=== PATIENT | male | born 1945 | race Caucasian/White ===

== ENCOUNTER 2018-12-05 01:36 | Inpatient (IN) | payer MEDICARE, BC ==
[~2018-12-05] VITALS: Ht 175.3 cm; Wt 65.3 kg
--- NOTE | 2018-12-05 01:40 | NUR ---
PT OCHOA FROM [facility] COMPLAINING OF SUICIDAL IDEATION WITH PLAN TO SHOOT HIMSELF. PT DENIES HI OR HALLUCINATIONS. PT AAOX4. RESPIRATIONS EVEN AND UNLABORED. SKIN INTACT. ABLE TO AMBULATE WITH STEADY GAIT. NO ACUTE DISTRESS NOTED AT THIS TIME.
[2018-12-05 02:05] LABS: APPEARANCE,URINE CLOUDY (CLEAR); BILIRUBIN,URINE NEGATIVE (NEGATIVE); BLOOD, URINE TRACE-INTA Ery/uL (NEGATIVE); COLOR,URINE YELLOW (YELLOW); KETONES,URINE NEGATIVE (NEGATIVE); LEUKOCYTE ESTERASE ,URINE 2+ (NEGATIVE); NITRITE, URINE NEGATIVE (NEGATIVE); PROTEIN,URINE NEGATIVE (NEGATIVE); UGLUCOSE NEGATIVE (NEGATIVE); UROBILINOGEN,URINE 0.2 EU/dL (0.2)
[2018-12-05 02:07] LABS: BASOPHILS # (AUTO) 0.1 /CMM (0.0-0.2); EOSINOPHILS % (AUTO) 0.7 % (0.0-6.0); HEMATOCRIT 42 % (39-51); HEMOGLOBIN 13.6 g/dL (13.5-17.5); LYMPHOCYTES # (AUTO) 1.2 /CMM (0.8-4.8); LYMPHOCYTES % (AUTO) 14.4 % (20.0-44.0); MEAN CORPUSCULAR HGB CONC 32 g/dl (31.0-36.0); MEAN CORPUSCULAR VOLUME 100 fL (80-96); MONOCYTES # (AUTO) 0.9 /CMM (0.1-1.30); MONOCYTES % (AUTO) 10.5 % (2.0-12.0); NEUTROPHILS # (AUTO) 6.3 /CMM (1.8-8.9); NEUTROPHILS % (AUTO) 73.4 % (43.0-81.0); PLATELET COUNT (AUTO) 276 /CMM (150-450); RED BLOOD CELL COUNT(AUTO) 4.23 MIL/uL (4.5-6.0); WHITE BLOOD COUNT (AUTO) 8.6 K/uL (4.3-11.0)
[2018-12-05 02:19] LABS: CALCIUM, SERUM 9.1 mg/dL (8.5-10.1); CARBON DIOXIDE 29 mmol/L (21-32); CHLORIDE 107 mmol/L (98-107); CREATININE 1.1 mg/dL (0.6-1.3); GLUCOSE 114 mg/dL (74-106); POTASSIUM 4.1 mmol/L (3.5-5.1); SODIUM SERUM 146 mmol/L (136-145); UREA NITROGEN, BLOOD 12 mg/dL (7-18)
[2018-12-05 02:22] LABS: ALANINE AMINOTRANSFERASE 16 U/L (12-78); ALBUMIN 3.3 g/dL (3.4-5.0); ALCOHOL, BLOOD < 3 mg/dL (0-0); ALKALINE PHOSPHATASE 81 U/L (46-116); ASPARTATE AMINOTRANSFERASE 11 U/L (15-37); BILIRUBIN,DIRECT 0.2 mg/dL (0.0-0.2); BILIRUBIN,TOTAL 0.5 mg/dL (0.2-1.0); TOTAL PROTEIN, SERUM 6.7 g/dL (6.4-8.2)
[2018-12-05 02:26] LABS: ACETAMINOPHEN 0 ug/ml (10-30)
[2018-12-05 02:47] LABS: BACTERIA,URINE Moderate /HPF (None Seen); SQUAMOUS EPITHELIAL CELL,UR Rare /HPF (None Seen); WBC,URINE TOO NUMEROUS TO COUN /HPF (0-3)
--- NOTE | 2018-12-05 03:07 | NUR ---
REPORT GIVEN TO MONAE DIALLO
[2018-12-05] MEDS ORDERED: MAGNESIUM HYDROXIDE 30 ML UDC PO PRN (03:30)
[2018-12-05] MEDS ORDERED: ACETAMINOPHEN 325 MG TABLET PO PRN (03:30)
[2018-12-05] MEDS ORDERED: ZOLPIDEM TARTRATE 5 MG TABLET PO PRN (03:30)
[2018-12-05] MEDS ORDERED: MAG HYDROX/AL HYDROX/SIMETH 30 ML UDC PO PRN (03:30)
[2018-12-05 04:27] VITALS: BP 127/70
--- NOTE | 2018-12-05 04:51 | NUR ---
ADMISSION NOTES: ADMITTED THIS 73 Y/O MALE PATIENT ADMIT FROM [facility] ER/INTIALLY FROM [facility] , PT IS ON 5150 HOLD FOR DANGER TO SELF , PER HOLD PT. I,M TIRED OF MAKING MY CRY, I HAVE GUN AT HOME, I WILL SHOOT MYSELF IN THE MOUTH WITH IT, OR DRIVE INTO A BRICK WALL OR ANYTHING TO END MY LIFE ITS OVER , UPON FACE TO FACE ASSESSMENT PATIENT IS A&O X ,2 DEPRESSED ANXIOUS UNCOOPERTIVE, EASILY GETS AGITATED, PT. IS POOR HISTORIAN, POOR INSIGHT ,POOR JUDGEMENT , POOR HYGINE , PT. REFUSED TO TAKE SHOWER AT THIS TIME , AND PT. REFUSED TO SIGN ADMISSION PAPERS ,V/S MD JULIANNE AWARE AND NOTIFIED OF THE ADMISSION, SKIN ASSESSMENT DONE, PICTURES TAKEN AND PLACED IN THE CHART, BELONGINGS CONTRABAND WERE DONE , NURSING ASSESSMENT DONE ,PT. RIGHTS DISCUSS BY WIDE AREA NETWORK SYSTEMS ADMINISTRATOR , PROVIDE THE PT. WITH HANDBOOK, AND MEDICATIONS GUIDE, ENVIRONMENTAL SAFETY CHECK DONE, ENCOURAGED PT. VERBALIZED ANY FEELING CONCERN TO STAFF, ORIENT TO UNIT POLICY, NO ACUTE DISTRESS NOTED,VITAL SIGNS WNL ,DENIES ANY PAIN AT THIS TIME ,WILL CONTINUE TO MONITOR FOR Q15 SAFETY AND BEHAVIOR.
[2018-12-05] MEDS ORDERED: SULF1TAB48 PO (05:20)
[2018-12-05] MEDS ORDERED: BUDE10.2 IH (05:20)
[2018-12-05] MEDS ORDERED: FINA5TAB11 PO (05:20)
[2018-12-05] MEDS ORDERED: TIOT18CA3 IH (05:20)
--- NOTE | 2018-12-05 06:49 | NUR ---
GPS RN NOTES: ATTEMPTED TO CALL FAMILY MEMEBER, HOWEVER NO ANSWER NOTED AT THIS TIME , LEFT VOICE MAIL MESSAGE AT THIS # [phone] .
[2018-12-05 08:00] VITALS: BP 139/89
[2018-12-05] MEDS ORDERED: DIVA250T47 PO (09:01)
[2018-12-05] MEDS: DIVALPROEX SODIUM 250 MG TABLET.DR PO SCH ×2 (11:20→20:30)
--- NOTE | 2018-12-05 15:07 | NUR ---
Group Note: SW encouraged the pt to participate in the group therapy but he stated that he would rather finish speaking to his on the phone.
[2018-12-05] MEDS: SULFAMETH/TRIMETH 800/160 MG 1 UDTAB TABLET PO SCH ×2 (15:29→20:30)
[2018-12-05 16:00] VITALS: BP 129/76
[2018-12-05] MEDS ORDERED: Medication Not On Formulary EA (Budesonide/Formoterol Fumarate (Symbicort 160-4.5 Mcg In IH SCH (17:00)
[2018-12-05] MEDS ORDERED: TIOTROPIUM BROMIDE 6 CAP/BOX CAP.W.DEV IH SCH (17:00)
[2018-12-05] MEDS: IPRATROPIUM NEB FS 0.5 MG/2.5 ML AMPUL.NEB NEB SCH ×2 (19:30→20:18)
--- NOTE | 2018-12-05 19:30 | NUR ---
RN NOTES: RECEIVED ASLEEP ON BED, PREFER TO BE INSIDE THE ROOM MOST OF THE TIME, A/OX2,GOOD COMPLIANCE WITH MEDICATION, NO SIGN OF AGITATION, WILL CONTINUE TO MONITOR BEHAVIOR,SAFETY PRECAUTION OBSERVED.ON CLOSE WATCH.
[2018-12-05 20:00] VITALS: BP 123/58
[2018-12-05] MEDS ORDERED: QUETIAPINE FUMARATE 25 MG TABLET PO SCH (22:00)
[2018-12-06] MEDS: IPRATROPIUM NEB FS 0.5 MG/2.5 ML AMPUL.NEB NEB SCH ×4 (01:30→19:30)
--- NOTE | 2018-12-06 03:10 | NUR ---
RN NOTES: SLEEP WELL IN THE NIGHT, CALLS AND NEEDS ATTENDED, FALL,SAFETY AND ASPIRATION PRECAUTION OBSERVED.BED LOW AND LOCKED.
[2018-12-06 07:09] LABS: BASOPHILS % (AUTO) 0.7 % (0.0-2.0); EOSINOPHILS % (AUTO) 1.5 % (0.0-6.0); HEMATOCRIT 35 % (39-51); HEMOGLOBIN 11.5 g/dL (13.5-17.5); LYMPHOCYTES # (AUTO) 1.3 /CMM (0.8-4.8); LYMPHOCYTES % (AUTO) 23.5 % (20.0-44.0); MEAN CORPUSCULAR HGB CONC 33 g/dl (31.0-36.0); MEAN CORPUSCULAR VOLUME 98 fL (80-96); MONOCYTES # (AUTO) 0.6 /CMM (0.1-1.30); MONOCYTES % (AUTO) 10.3 % (2.0-12.0); NEUTROPHILS # (AUTO) 3.7 /CMM (1.8-8.9); PLATELET COUNT (AUTO) 191 /CMM (150-450); RED BLOOD CELL COUNT(AUTO) 3.51 MIL/uL (4.5-6.0); WHITE BLOOD COUNT (AUTO) 5.7 K/uL (4.3-11.0)
[2018-12-06 07:11] LABS: CHOLESTEROL 121 mg/dL (<200); HDL CHOLESTEROL 47 mg/dL (40-60); LDL 64 mg/dL (0-99); TRIGLYCERIDES 51 mg/dL (30-150)
[2018-12-06 07:17] LABS: ALANINE AMINOTRANSFERASE 12 U/L (12-78); ALBUMIN 2.5 g/dL (3.4-5.0); ALKALINE PHOSPHATASE 56 U/L (46-116); ASPARTATE AMINOTRANSFERASE 9 U/L (15-37); BILIRUBIN,TOTAL 0.5 mg/dL (0.2-1.0); CALCIUM, SERUM 8.4 mg/dL (8.5-10.1); CARBON DIOXIDE 32 mmol/L (21-32); CHLORIDE 109 mmol/L (98-107); CREATININE 1.1 mg/dL (0.6-1.3); GLUCOSE 77 mg/dL (74-106); POTASSIUM 4.4 mmol/L (3.5-5.1); SODIUM SERUM 146 mmol/L (136-145); UREA NITROGEN, BLOOD 14 mg/dL (7-18)
[2018-12-06 08:00] VITALS: BP 116/90
[2018-12-06] MEDS: FLUTICASONE/VILANTEROL 1 EACH BLST.W.DEV IH SCH (08:31)
[2018-12-06] MEDS: SULFAMETH/TRIMETH 800/160 MG 1 UDTAB TABLET PO SCH ×2 (08:32→20:25)
[2018-12-06] MEDS: DIVALPROEX SODIUM 250 MG TABLET.DR PO SCH ×2 (08:32→20:24)
[2018-12-06] MEDS: FINASTERIDE (5 MG) 5 MG TABLET PO SCH (08:34)
[2018-12-06] MEDS ORDERED: ESCITALOPRAM OXALATE (10 MG) 10 MG TABLET PO SCH (09:00)
[2018-12-06 16:00] VITALS: BP 133/86
[2018-12-06 20:41] VITALS: BP 124/83
[2018-12-07] MEDS: IPRATROPIUM NEB FS 0.5 MG/2.5 ML AMPUL.NEB NEB SCH ×4 (01:30→19:30)
[2018-12-07 08:00] VITALS: BP 119/72
[2018-12-07] MEDS ORDERED: QUETIAPINE FUMARATE 25 MG TABLET PO SCH (08:41)
[2018-12-07] MEDS: FINASTERIDE (5 MG) 5 MG TABLET PO SCH (08:59)
[2018-12-07] MEDS: DIVALPROEX SODIUM 250 MG TABLET.DR PO SCH ×2 (08:59→21:13)
[2018-12-07] MEDS: FLUTICASONE/VILANTEROL 1 EACH BLST.W.DEV IH SCH (08:59)
[2018-12-07] MEDS: SULFAMETH/TRIMETH 800/160 MG 1 UDTAB TABLET PO SCH ×2 (08:59→21:13)
[2018-12-07 16:00] VITALS: BP 146/73
[2018-12-07 20:11] VITALS: BP 147/57
[2018-12-07] MEDS: QUETIAPINE FUMARATE 25 MG TABLET PO SCH (21:13)
[2018-12-08] MEDS: IPRATROPIUM NEB FS 0.5 MG/2.5 ML AMPUL.NEB NEB SCH ×4 (01:30→19:30)
[2018-12-08 07:37] LABS: ALANINE AMINOTRANSFERASE 11 U/L (12-78); ALBUMIN 2.6 g/dL (3.4-5.0); ALKALINE PHOSPHATASE 58 U/L (46-116); ASPARTATE AMINOTRANSFERASE 9 U/L (15-37); BILIRUBIN,TOTAL 0.5 mg/dL (0.2-1.0); CALCIUM, SERUM 8.3 mg/dL (8.5-10.1); CARBON DIOXIDE 28 mmol/L (21-32); CHLORIDE 105 mmol/L (98-107); CREATININE 1.1 mg/dL (0.6-1.3); GLUCOSE 66 mg/dL (74-106); POTASSIUM 3.9 mmol/L (3.5-5.1); SODIUM SERUM 142 mmol/L (136-145); TOTAL PROTEIN, SERUM 5.2 g/dL (6.4-8.2); UREA NITROGEN, BLOOD 24 mg/dL (7-18)
[2018-12-08 07:42] LABS: BASOPHILS # (AUTO) 0.1 /CMM (0.0-0.2); EOSINOPHILS % (AUTO) 1.9 % (0.0-6.0); HEMATOCRIT 39 % (39-51); HEMOGLOBIN 12.6 g/dL (13.5-17.5); LYMPHOCYTES # (AUTO) 0.9 /CMM (0.8-4.8); LYMPHOCYTES % (AUTO) 16.6 % (20.0-44.0); MEAN CORPUSCULAR HGB CONC 33 g/dl (31.0-36.0); MEAN CORPUSCULAR VOLUME 99 fL (80-96); MONOCYTES # (AUTO) 0.5 /CMM (0.1-1.30); MONOCYTES % (AUTO) 10.6 % (2.0-12.0); NEUTROPHILS # (AUTO) 3.6 /CMM (1.8-8.9); NEUTROPHILS % (AUTO) 69.9 % (43.0-81.0); PLATELET COUNT (AUTO) 168 /CMM (150-450); RED BLOOD CELL COUNT(AUTO) 3.88 MIL/uL (4.5-6.0); WHITE BLOOD COUNT (AUTO) 5.1 K/uL (4.3-11.0)
[2018-12-08 07:53] LABS: VALPROIC ACID 62 ug/mL (50-100)
[2018-12-08 08:00] VITALS: BP 113/76
[2018-12-08] MEDS: FINASTERIDE (5 MG) 5 MG TABLET PO SCH (08:36)
[2018-12-08] MEDS: DIVALPROEX SODIUM 250 MG TABLET.DR PO SCH ×2 (08:36→20:52)
[2018-12-08] MEDS: SULFAMETH/TRIMETH 800/160 MG 1 UDTAB TABLET PO SCH ×2 (08:36→20:52)
[2018-12-08] MEDS: FLUTICASONE/VILANTEROL 1 EACH BLST.W.DEV IH SCH (08:44)
--- NOTE | 2018-12-08 11:45 | NUR ---
SW called the pt's , Martha Barker ([phone]), and left a voicemail stating that the SW would like to discuss the pts treatment plan and initial discharge plan.
--- NOTE | 2018-12-08 11:50 | NUR ---
Initial Discharge Plan: Pt currently resides at his home with his , Martha Barker ([phone]), located at [address] [place] [address]. Per pt, he would like to return to his home. SW will work with the pt and the MD regarding appropriate discharge planning. SW will form a safe and proper discharge.
[2018-12-08 16:00] VITALS: BP 147/74
[2018-12-08 20:21] VITALS: BP 121/63
[2018-12-08] MEDS: QUETIAPINE FUMARATE 25 MG TABLET PO SCH (21:18)
[2018-12-09] MEDS: IPRATROPIUM NEB FS 0.5 MG/2.5 ML AMPUL.NEB NEB SCH ×4 (01:30→18:54)
[2018-12-09 08:00] VITALS: BP 101/55
[2018-12-09] MEDS: FINASTERIDE (5 MG) 5 MG TABLET PO SCH (08:17)
[2018-12-09] MEDS: SULFAMETH/TRIMETH 800/160 MG 1 UDTAB TABLET PO SCH ×2 (08:18→20:54)
[2018-12-09] MEDS: DIVALPROEX SODIUM 250 MG TABLET.DR PO SCH ×2 (08:18→20:54)
[2018-12-09] MEDS: FLUTICASONE/VILANTEROL 1 EACH BLST.W.DEV IH SCH (08:19)
[2018-12-09] MEDS: ESCITALOPRAM OXALATE (10 MG) 10 MG TABLET PO SCH (09:59)
--- NOTE | 2018-12-09 13:45 | NUR ---
Group note: Pt attended a group session on 12/09/18 at 1PM discussing discharge needs. S: Pt stated, I want to return to my and return to the life that I had. I miss being able to sit in my house, in my chair, with my TV, and just do as I please. I have a life. I do not know why I wanted to give that up." O: Pt was present during the group session and was engaged. Pt appeared to be in a euthymic mood and presented with an agitated affect. Pt maintained appropriate eye contact and his tone of voice was pressured. A: Pt expressed that being in the hospital has made him realize that he has a good life and that he wants to return to it. Pt expressed that what he had said that he wanted to do to himself was "stupid." He expressed regret over the situation with his and stated that he does miss her and wants to keep living with her. Pt expressed that he may need therapy for once he is discharged from the hospital. P: Pt will continue milieu treatment and medication stabilization.
[2018-12-09 16:22] VITALS: BP 112/79
[2018-12-09 19:51] VITALS: BP 114/61
[2018-12-09] MEDS: QUETIAPINE FUMARATE 25 MG TABLET PO SCH (20:54)
[2018-12-10] MEDS: IPRATROPIUM NEB FS 0.5 MG/2.5 ML AMPUL.NEB NEB SCH ×4 (00:40→19:30)
[2018-12-10 08:00] VITALS: BP 150/80
--- NOTE | 2018-12-10 09:30 | NUR ---
SW received a call from pt's , Martha Barker ([phone]) requesting information regarding pts discharge. SW informed her that psychiatrist Dr. Taylor has not ordered discharge for pt as pt has been isolating and not engaging in milieu treatment. explained that pt is not a trusting person and he does not like being around other people. She also mentioned that pt has been complaining that the psychiatrist does not have a friendly relationship with him. SW explained that psychiatrist comes to evaluate pt daily and also explained that psychiatrist is treating pts psychiatric symptoms and per his daily evaluations feels that pt is not ready for discharge as he is still meeting criteria for psychiatric hypostatization. stated that pt told her that he does not trust Dr. Taylor and needs to get to know him better before cooperating with him. SW explained that cooperating with the psychiatrist and social media marketing specialist is part of pts treatment plan and in order to be discharged pt needs to be cooperative with his treatment. understood and asked SW to explain this pt. SW stated she would have a conversation with pt regarding his treatment plan agreed.
[2018-12-10] MEDS: FLUTICASONE/VILANTEROL 1 EACH BLST.W.DEV IH SCH (09:44)
[2018-12-10] MEDS: DIVALPROEX SODIUM 250 MG TABLET.DR PO SCH ×2 (09:44→21:08)
[2018-12-10] MEDS: SULFAMETH/TRIMETH 800/160 MG 1 UDTAB TABLET PO SCH ×2 (09:44→21:07)
[2018-12-10] MEDS: ESCITALOPRAM OXALATE (10 MG) 10 MG TABLET PO SCH (09:44)
[2018-12-10] MEDS: FINASTERIDE (5 MG) 5 MG TABLET PO SCH (09:45)
--- NOTE | 2018-12-10 15:20 | NUR ---
GROUP NOTE: SW facilitated group on 12/10/18 at 2:00pm, group topic was "drug dependency." S: "I don't fucking have a drug problem, why the fuck does it say on this paper that I do!. I smoke a bowl of weed to mellow me out and take the edge out so fucking what! no one is going to tell me to stop" O: pt was agitated, using foul language, uncooperative. Pt became labile and hostile and would not allow SW to speak. A" Pt did not gain awareness of his substance use, pt stated he will never stop smoking marijuana. P: Pt will continue milieu treatment and medication stabilization.
[2018-12-10 16:00] VITALS: BP 110/73
--- NOTE | 2018-12-10 17:30 | NUR ---
PT. ON PHONE TODAY AND AGITATED SEVERAL TIMES.
[2018-12-10 19:59] VITALS: BP 143/89
[2018-12-10] MEDS: QUETIAPINE FUMARATE 25 MG TABLET PO SCH (21:08)
[2018-12-10] MEDS: LORAZEPAM 0.5 MG TABLET PO PRN (21:08)
[2018-12-11] MEDS: IPRATROPIUM NEB FS 0.5 MG/2.5 ML AMPUL.NEB NEB SCH ×4 (01:10→19:30)
[2018-12-11 08:00] VITALS: BP 104/70
[2018-12-11] MEDS: FINASTERIDE (5 MG) 5 MG TABLET PO SCH (08:43)
[2018-12-11] MEDS: DIVALPROEX SODIUM 250 MG TABLET.DR PO SCH ×2 (08:43→20:40)
[2018-12-11] MEDS: ESCITALOPRAM OXALATE (10 MG) 10 MG TABLET PO SCH (08:43)
[2018-12-11] MEDS: FLUTICASONE/VILANTEROL 1 EACH BLST.W.DEV IH SCH (08:43)
[2018-12-11] MEDS: SULFAMETH/TRIMETH 800/160 MG 1 UDTAB TABLET PO SCH (08:43)
--- NOTE | 2018-12-11 15:20 | NUR ---
GROUP NOTE: Pt did not attend group due to pt contesting his 4230 hold and attending his PC hearing.
[2018-12-11 16:18] VITALS: BP 118/71
[2018-12-11 20:00] VITALS: BP 105/68
[2018-12-11] MEDS: QUETIAPINE FUMARATE 25 MG TABLET PO SCH (22:46)
[2018-12-12] MEDS: IPRATROPIUM NEB FS 0.5 MG/2.5 ML AMPUL.NEB NEB SCH ×4 (01:30→19:30)
[2018-12-12 08:00] VITALS: BP 106/67
--- NOTE | 2018-12-12 08:40 | NUR ---
SHANITA received a call from pt's , Martha Barker ([phone]) requesting information regarding pts discharge. SW informed her that psychiatrist has not ordered discharge as pt continues to meet criteria for hospitalization due to his labile and unpredictable mood. explained that pt has a difficult time with male authority figures and also has a difficult time with people who are educated. SW educated pts and provided her with insight into pts mental illness. SHANITA also addressed pts weapon and informed that due to pt being placed on a 5150 hold he no longer is able to possess a weapon. SHANITA informed her that due to pt threatening to end his life with a gun, SW is mandated to contact their local police department and report that there is a gun in the home for seizure. SHANITA also informed that a Fire Arm Prohibition form was completed online and sent to the Department of Justice which means that pt will no longer be able to own a gun. stated that this information will make pt really angry as he has multiple guns SW informed her that for pts safety is it best she remove the guns and take then to her local authority or a patrol police sergeant will come to the home to remove them. understood and stated she needed to see how she could remove them before pt is discharged back home.
[2018-12-12] MEDS: FINASTERIDE (5 MG) 5 MG TABLET PO SCH (09:31)
[2018-12-12] MEDS: FLUTICASONE/VILANTEROL 1 EACH BLST.W.DEV IH SCH (09:31)
[2018-12-12] MEDS: DIVALPROEX SODIUM 250 MG TABLET.DR PO SCH ×2 (09:31→21:37)
[2018-12-12] MEDS: ESCITALOPRAM OXALATE (10 MG) 10 MG TABLET PO SCH (09:31)
--- NOTE | 2018-12-12 14:37 | NUR ---
Group note: Pt attended a group session on 12/12/18 at 1:30PM discussing their goals for when they are in the hospital and for once they are discharged. S: Pt stated, I have never set any goals for myself because I cannot achieve them. I just want to go to home and go back to my life. O: Pt was present during the group session and was engaged. Pt appeared to be in a depressed mood and presented with an agitated affect. Pt maintained appropriate eye contact and had a very sarcastic and apathetic tone. A: Pt expressed that he feels as if his stay in the hospital was not helpful and that he is just doing what he thinks he needs to do to get discharged back to his home. Pt gained the insight that his medications are important and that he needs to be able to talk to his and use her for support. P: Pt will continue milieu treatment and medication stabilization.
--- NOTE | 2018-12-12 14:52 | NUR ---
GUN REPORT: SHANITA contacted [place] [employer] Address: [address], [place] [address] and spoke with Officer Brittany who collected information from SHANITA and stated she would contact the Patrol Conductor and inform him of gun cease. Brittany stated SHANITA should expect a call back with updated information.
[2018-12-12 16:00] VITALS: BP 119/73
--- NOTE | 2018-12-12 16:56 | NUR ---
staying in room mostly,isolative.no change in status.
--- NOTE | 2018-12-12 18:48 | NUR ---
GIVEN TYLENOL 650 MG PO FOR ESTEFANÍA. LEG PAIN.
[2018-12-12 20:00] VITALS: BP 103/62
[2018-12-12] MEDS: QUETIAPINE FUMARATE 25 MG TABLET PO SCH (21:37)
[2018-12-13] MEDS: IPRATROPIUM NEB FS 0.5 MG/2.5 ML AMPUL.NEB NEB SCH ×4 (02:39→19:30)
[2018-12-13 08:00] VITALS: BP 109/70
[2018-12-13] MEDS: FLUTICASONE/VILANTEROL 1 EACH BLST.W.DEV IH SCH (09:07)
[2018-12-13] MEDS: DIVALPROEX SODIUM 250 MG TABLET.DR PO SCH ×2 (09:07→21:40)
[2018-12-13] MEDS: FINASTERIDE (5 MG) 5 MG TABLET PO SCH (09:07)
[2018-12-13] MEDS: ESCITALOPRAM OXALATE (10 MG) 10 MG TABLET PO SCH (09:07)
--- NOTE | 2018-12-13 14:00 | NUR ---
being more isolative today than yesterday.
[2018-12-13 16:00] VITALS: BP 137/85
[2018-12-13 19:41] VITALS: BP 114/78
[2018-12-13] MEDS: LORAZEPAM 0.5 MG TABLET PO PRN (21:40)
[2018-12-13] MEDS: QUETIAPINE FUMARATE 25 MG TABLET PO SCH (21:40)
[2018-12-14] MEDS: IPRATROPIUM NEB FS 0.5 MG/2.5 ML AMPUL.NEB NEB SCH ×4 (01:30→19:30)
[2018-12-14 08:00] VITALS: BP 112/67
[2018-12-14] MEDS: DIVALPROEX SODIUM 250 MG TABLET.DR PO SCH ×2 (08:05→21:32)
[2018-12-14] MEDS: ESCITALOPRAM OXALATE (10 MG) 10 MG TABLET PO SCH (08:05)
[2018-12-14] MEDS: FINASTERIDE (5 MG) 5 MG TABLET PO SCH (08:05)
[2018-12-14] MEDS: FLUTICASONE/VILANTEROL 1 EACH BLST.W.DEV IH SCH (08:20)
[2018-12-14 16:00] VITALS: BP 104/48
[2018-12-14 20:00] VITALS: BP 124/71
[2018-12-14] MEDS: QUETIAPINE FUMARATE 25 MG TABLET PO SCH (21:32)
[2018-12-15] MEDS: IPRATROPIUM NEB FS 0.5 MG/2.5 ML AMPUL.NEB NEB SCH ×4 (01:30→20:12)
--- NOTE | 2018-12-15 01:53 | NUR ---
notified by RT that pt is refusing breathing tx.
[2018-12-15 08:00] VITALS: BP 150/74
[2018-12-15] MEDS: FLUTICASONE/VILANTEROL 1 EACH BLST.W.DEV IH SCH (08:47)
[2018-12-15] MEDS: DIVALPROEX SODIUM 250 MG TABLET.DR PO SCH ×2 (08:48→21:16)
[2018-12-15] MEDS: FINASTERIDE (5 MG) 5 MG TABLET PO SCH (08:48)
[2018-12-15] MEDS: ESCITALOPRAM OXALATE (10 MG) 10 MG TABLET PO SCH (08:54)
--- NOTE | 2018-12-15 09:35 | NUR ---
GUN REPORT: SW received a call from Office Wyatt from [place] [employer] Address: [address] , [place] [address] [phone] stating that he was unable to locate pts and the call was cleared. There was no case open or report number.
--- NOTE | 2018-12-15 09:45 | NUR ---
SW contacted pt's , Martha Barker ([phone]) to inform her pt is being discharged on Saturday12/17/18. SW also spoke with regarding pts medications and informed her that psychiatrist has stated that all medication at home should be removed as pt has stated he takes "a bunch of pills" SW informed that pt is only taking 3 psychiatric medications and 2 medical medications and pt should be following that regimen once discharged home. stated that she will be removing all the excess medication pt has at home. also informed SW that the guns have been removed from the pts home and that she has taken them to a friends house for safe keeping. stated that she received a voicemail from [place] [employer] but she never returned the call due to the guns no longer being in the pts home.
--- NOTE | 2018-12-15 10:08 | NUR ---
SW contacted [facility] [phone] and left a voicemail for callback to arrange transportation.
--- NOTE | 2018-12-15 10:32 | NUR ---
SW contacted Silvia, lead case manager at [facility] [phone] who stated pt does not belong to their clinic and therefore cannot provide transportation.
--- NOTE | 2018-12-15 10:33 | NUR ---
SW contacted Katelin, case reviewer at [facility] [phone] who stated she would contact her supervisor vendor quality to attempt to arrange transportation for pt.
--- NOTE | 2018-12-15 10:33 | NUR ---
SHANITA contacted [facility] [employer] crisis supervision [phone] to inform him SHANITA is having a hard time arranging transportation for pt and that per return agreement letter it stated the [facility] guaranteed that they would arrange transportation. Gilson stated that he would work on this transportation and would have one of his team members contact SHANITA.
--- NOTE | 2018-12-15 10:59 | NUR ---
SW received a call from Katelin bilingual patient support caseworker at [facility] Crisis Team [phone] stating she will be picking pt up on Saturday12/17/18 between 11:00am and 12:00pm.
--- NOTE | 2018-12-15 15:00 | NUR ---
GROUP NOTE: Pt attended group on 12/15/18 at 2:00pm. Group topic was "Depression" and how depression has affected their lives. S: "My depression has been going on for 50 years, it makes me angry and then I take it out on everyone around me. I haven't found anyone to fix it. I was going to the [facility] two years ago and then they dropped me because my psychotherapist left and I haven't been seeing anyone since then. The medication I was on wasn't helping then I stopped taking it. Now I feel better I guess, I'm not as angry as I was when I first came here. The medication keeps me in the middle not angry and not depressed but not high either." O: Pt was a bit irritable when speaking, pt was speaking loudly and was sitting outside the [place]. Pt was engaged in conversation maintained minimal eye contact and was anxious about being discharged as soon as possible. A: Pt gained awareness regarding his current mental state and how it has been affecting his life and his loved ones. Pt expressed frustration about his feelings of depression and feels sad that his reactions affect his . P: Pt will continue milieu treatment and medication stabilization.
[2018-12-15 16:00] VITALS: BP 146/81
[2018-12-15 19:50] VITALS: BP 129/72
[2018-12-15] MEDS: LORAZEPAM 0.5 MG TABLET PO PRN (21:16)
[2018-12-15] MEDS: QUETIAPINE FUMARATE 25 MG TABLET PO SCH (21:16)
[2018-12-16] MEDS: IPRATROPIUM NEB FS 0.5 MG/2.5 ML AMPUL.NEB NEB SCH ×4 (01:30→20:54)
[2018-12-16 08:00] VITALS: BP 129/74
[2018-12-16] MEDS: DIVALPROEX SODIUM 250 MG TABLET.DR PO SCH ×2 (09:50→21:30)
[2018-12-16] MEDS: ESCITALOPRAM OXALATE (10 MG) 10 MG TABLET PO SCH (09:50)
[2018-12-16] MEDS: FLUTICASONE/VILANTEROL 1 EACH BLST.W.DEV IH SCH (09:50)
[2018-12-16] MEDS: FINASTERIDE (5 MG) 5 MG TABLET PO SCH (09:50)
--- NOTE | 2018-12-16 12:44 | NUR ---
SHANITA contacted pt's , Martha Barker ([phone]) to confirm pts discharge tomorrow 12/17/18. SHANITA informed her that pt will be picked up by [facility] Crisis team between 11:00 and [id number] and also provided her with the top case assembler [employer] number to coordinate drop off. SHANITA also notified about pts prescription and recommended she schedule a follow up appointment between 7 days of pts discharge at the [facility]. stated she would be calling the [facility] pharmacy to ask about getting his prescription filled.
--- NOTE | 2018-12-16 15:58 | NUR ---
QUIET,KEEPING TO SELF. TRANSFERRED TO RM. 211-1.
[2018-12-16 16:00] VITALS: BP 148/106
--- NOTE | 2018-12-16 16:21 | NUR ---
Group note: Pt attended a group session on 12/16/18 at 3PM discussing their support systems and how it has helped them through their hospitalizations or life in general. S: Pt stated, I have relied on my for many years to be there for me and she always has but I do not think that I have done the same for her. I think that's because I have more issues though. I really do not like depending on anyone and never have but once you are , everything just changes and she is always there so she knows what I go through. O: Pt was present during the group session and was engaged. Pt appeared to be in a depressed mood and presented with an agitated affect. Pt maintained appropriate eye contact and had a very sarcastic and apathetic tone. A: Pt expressed his desire to return to his home to be with his because he realized how much he has depended on her throughout the years. Pt realized that he always focuses on the negatives but that he is now realizing that he has been blessed with his partner and she has helped him and stayed with him through his anger. P: Pt will continue milieu treatment and medication stabilization.
[2018-12-16 20:18] VITALS: BP 117/79
[2018-12-16] MEDS: QUETIAPINE FUMARATE 25 MG TABLET PO SCH (21:31)
[2018-12-17] MEDS: IPRATROPIUM NEB FS 0.5 MG/2.5 ML AMPUL.NEB NEB SCH ×2 (01:30→07:35)
[2018-12-17 08:00] VITALS: BP 107/68
[2018-12-17] MEDS: DIVALPROEX SODIUM 250 MG TABLET.DR PO SCH (09:02)
[2018-12-17] MEDS: FINASTERIDE (5 MG) 5 MG TABLET PO SCH (09:02)
[2018-12-17] MEDS: FLUTICASONE/VILANTEROL 1 EACH BLST.W.DEV IH SCH (09:02)
[2018-12-17] MEDS: ESCITALOPRAM OXALATE (10 MG) 10 MG TABLET PO SCH (09:03)
--- NOTE | 2018-12-17 12:09 | NUR ---
CASK MAKER NOTE: PATIENT IS A 73 YEAR OLD MALE DISCHARGED HOME TO [address] [place] [address]. PATIENT IS IN STABLE CONDITION. COOPERATIVE WITH PLAN OF CARE. COMPLIANT WITH MEDICATION MANAGEMENT. VSS. NO ACUTE DISTRESS NOTED. NO COMPLAINTS. WOUND PICTURES WERE TAKEN AND DOCUMENTED IN CHART. PATIENT DENIES SI/HI, AUDITORY AND VISUAL HALLUCINATIONS AT THE TIME OF DISCHARGE. BEHAVIOR WAS IMPROVED, PSYCHIATRIC TREATMENT PLANS MET, MEDICAL TREATMENT PLANS DEFERRED FOR CONTINUAL MONITORING. PATIENT WAS EDUCATED ABOUT AFTERCARE. RETURNED PERSONAL BELONGINGS TO PATIENT. MEDICATIONS WERE RECONCILED WITH DR. NARAYANAN WITH DISCHARGE ORDERS AND SALVADOR ADORNO (NO PRESCRIPTION WAS WRITTEN FOR MEDICAL MEDICATIONS DUE TO PATIENT STATING HE HAD A LOT OF THOSE MEDICATIONS AT HOME AND DIDN'T NEED A NEW PRESCRIPTION) PATIENT SIGNED DISCHARGE PAPERWORK. PATIENT GOT TRANSPORTATIONS FROM [facility] AND LEFT THE FACILITY AT 11:50. PATIENT HAS FOLLOW UP APPOINTMENTS WITH PSYCHIATRIST AT THE [facility] [address] [facility] [address] [address] CARREON AT [facility] [address] [facility] [address] .
--- NOTE | 2018-12-17 12:38 | NUR ---
DISCHARGE NOTE: Pt was discharged home [address] [place] [address] via [facility] transportation between 11:00am and 12:00pm. Pts Martha Barker ([phone]) has been notified and agreed with discharge plan. Pts mood was anxious but euthymic with congruent affect. Pt denied suicidal/homicidal ideation and denied visual/auditory hallucinations. Pt was referred to [phone] for continued mental health treatment and also to address his current substance use. Pt will be contacted by their team for an assessment within 7 days of pts discharge. also faxed clicvnl madeleinefeng to a.Psychiatrist: [facility] Address: [address] [place] [address] b.Chief Pilot: Dr. Duffy [facility] Address: [address] [place] [id number] Addendum: 12/17/18 at 1244 by SUSAN DIEHL ERROR
--- NOTE | 2018-12-17 12:44 | NUR ---
DISCHARGE NOTE: Pt was discharged home [address] [place] [address] via [facility] transportation between 11:00am and 12:00pm. Pts Martha Barker ([phone]) has been notified and agreed with discharge plan. Pts mood was anxious but euthymic with congruent affect. Pt denied suicidal/homicidal ideation and denied visual/auditory hallucinations. Pt was referred to [facility] [id number] for continued mental health treatment and also to address his current substance use. Pt will be contacted by their team for an assessment within 7 days of pts discharge. SW also faxed clinical information to . Pt will also follow up with the [facility] Address: [facility] [place] [address] for psychiatric treatment and medication management. Pt will also follow up with Dr. Duffy [facility] Address: [address] [place] [address] . The multidisciplinary exitcare form was done, printed, signed, and given to the patient.
== END 2018-12-17 11:50 | disposition home or self-care (01) | DRG 885 ==
LOC: ER 01:45 → GPS 02:32
PROVIDERS: ADMIT Psychiatry & Neurology Psychiatry; ATTEND Hospitalist
DX: F31.5 Bipolar disorder, current episode depressed, severe, with psychotic features (principal); E87.0 Hyperosmolality and hypernatremia; E44.1 Mild protein-calorie malnutrition; N39.0 Urinary tract infection, site not specified; R45.851 Suicidal ideations; F29 Unspecified psychosis not due to a substance or known physiological condition; J44.9 Chronic obstructive pulmonary disease, unspecified; F41.9 Anxiety disorder, unspecified; Z79.51 Long term (current) use of inhaled steroids; Z79.899 Other long term (current) drug therapy; W34.00XS Accidental discharge from unspecified firearms or gun, sequela; D64.9 Anemia, unspecified; F12.90 Cannabis use, unspecified, uncomplicated; F43.10 Post-traumatic stress disorder, unspecified; G89.29 Other chronic pain
CPT/HCPCS: 36415; 80048-TC; 80053-TC; 80061-TC; 80076-TC; 80164-TC; 80305; 81000-TC; 85025-TC; 87081-TC; 87086-TC; G0480